=== PATIENT | female | born 1950 | race Two or more races ===

== ENCOUNTER 2017-07-17 10:03 | Outpatient (CLI) | payer OTHER | END 2017-07-17 10:11 | disposition home or self-care (01) | LOC: SONOGRAMA 10:03 → MAMO-SONO 10:30 | DX: N18.9 Chronic kidney disease, unspecified (principal) ==

== ENCOUNTER 2017-07-24 08:53 | Outpatient (CLI) | payer OTHER | END 2017-07-24 09:30 | disposition home or self-care (01) | LOC: NUCLEAR 08:53 | DX: I65.21 Occlusion and stenosis of right carotid artery (principal); I65.22 Occlusion and stenosis of left carotid artery ==

== ENCOUNTER 2023-02-12 18:43 | Emergency (ER) | payer OTHER ==
[~2023-02-12] VITALS: Ht 162.6 cm; Wt 64.4 kg
[~2023-02-12 18:43] MED LIST: AZOR 10-20 MG1 EACH; CILOSTAZOL100 MG PO; GLIMEPIRIDE2 MG; HYDRALAZINE HC100 MG PO; PEPCID AC20 MG PO; PLAVIX75 MG PO; SINGULAIR10 MG PO; SYNJARDY 12.5-1 EACH PO; TERAZOSIN HCL10 MG PO; TOPROL XL100 MG PO
== END 2023-02-12 21:38 | disposition home or self-care (01) ==
LOC: ER 18:43
DX: M25.552 Pain in left hip (principal); S00.03XA Contusion of scalp, initial encounter; W18.2XXA Fall in (into) shower or empty bathtub, initial encounter; Y93.E1 Activity, personal bathing and showering; Y92.012 Bathroom of single-family (private) house as the place of occurrence of the external cause; Y99.9 Unspecified external cause status